=== PATIENT | male | born 1950 | race Caucasian/White ===

== ENCOUNTER 2021-04-20 09:05 | Inpatient (IN) ==
[2021-04-20] MEDS ORDERED: CeFAZolin Syr 2,000MG/20 ML 2,000 MG/20 ML SYRINGE IVPB ONE (09:23)
[2021-04-20] MEDS ORDERED: Ringers Solution, Lactated 1,000 ML IVC SCH (09:30)
[2021-04-20] MEDS ORDERED: *HR* FentaNYL (PF) 100 MCG/2 ML VIAL ONE ×2 (10:19→12:16)
[2021-04-20] MEDS ORDERED: *HR* Propofol 200 MG/20 ML VIAL IVP ONE (10:19)
[2021-04-20] MEDS ORDERED: *HR* Succinylcholine 200 MG/10 ML VIAL IVP ONE (10:19)
[2021-04-20] MEDS ORDERED: Heparin 1,000 UNITS/500 mL 0 ML ONE (10:25)
[2021-04-20] MEDS ORDERED: Protamine Sulfate 50 MG/5 ML VIAL IVP ONE (10:37)
[2021-04-20] MEDS ORDERED: Heparin 1,000 UNITS/500 mL 1,500 ML ONE (10:38)
[2021-04-20] MEDS ORDERED: *HR* Labetalol 20 MG/4 ML SYRINGE IVP PRN ×2 (11:00→19:43)
[2021-04-20] MEDS ORDERED: Famotidine 20 MG/2 ML VIAL IVP ONE (11:00)
[2021-04-20] MEDS ORDERED: *HR* OxyCODONE Immed Rel 5 MG TABLET PO PRN ×2 (11:00→19:43)
[2021-04-20] MEDS ORDERED: *HR* Promethazine 25 MG/ML VIAL IVPB PRN (11:00)
[2021-04-20] MEDS ORDERED: *HR* HYDROmorphone 2 MG TABLET PO PRN (11:00)
[2021-04-20] MEDS ORDERED: *HR* HYDROmorphone (PF) 1 MG/ML SYRINGE IVP PRN (11:00)
[2021-04-20] MEDS ORDERED: Acetaminophen IV 1,000 MG/100 ML BAG IVPB ONE ×2 (11:00→17:25)
[2021-04-20] MEDS ORDERED: Pregabalin 75 MG CAPSULE PO ONE (11:00)
[2021-04-20] MEDS ORDERED: Ipratropium/Albuterol Neb 3 ML IH ONE (11:17)
[2021-04-20] MEDS ORDERED: Lidocaine -MPF 2% 5 ML VIAL ONE (12:15)
[2021-04-20] MEDS ORDERED: *HR* Rocuronium Bromide 50 MG/5 ML VIAL ONE ×2 (12:15→13:32)
[2021-04-20] MEDS ORDERED: *HR* Labetalol 20 MG/4 ML SYRINGE IVP ONE (12:16)
[2021-04-20] MEDS ORDERED: EPHEDrine 50 MG/ML VIAL ONE (12:31)
[2021-04-20] MEDS ORDERED: Ondansetron 4 MG/2 ML VIAL ONE (13:32)
[2021-04-20] MEDS ORDERED: *HR* Heparin 5,000 UNIT/ML VIAL ONE (13:59)
[2021-04-20] MEDS ORDERED: Sugammadex Sodium 200 MG/2 ML VIAL IV ONE (14:15)
[2021-04-20] MEDS ORDERED: *HR* Phenylephrine 10 MG/ML VIAL ONE (14:35)
[2021-04-20] MEDS ORDERED: ceFAZolin 1,000 MG, Sodium Chloride IRRigation 1,000 ML IR ONE (15:00)
[2021-04-20] MEDS ORDERED: Naloxone 0.4 MG/ML INJ IVP PRN (19:43)
[2021-04-20] MEDS ORDERED: Ondansetron 4 MG/2 ML VIAL IVP PRN (19:43)
[2021-04-20] MEDS ORDERED: *HR* HYDROcodone/Acet 5/325 mg TABLET PO PRN (19:43)
[2021-04-20] MEDS ORDERED: *HR* OxyCODONE/APAP 5/325 TABLET PO PRN (19:43)
[2021-04-20] MEDS ORDERED: Acetaminophen 325 MG TABLET PO PRN (19:43)
[2021-04-20] MEDS ORDERED: 0.9 % Sodium Chloride 1,000 ML IVC SCH (19:43)
[2021-04-20] MEDS: CeFAZolin 2 GM/120 ML BAG IVPB SCH (21:32)
[2021-04-21 02:42] VITALS: TEMP 98.3
[2021-04-21] MEDS: CeFAZolin 2 GM/120 ML BAG IVPB SCH ×2 (05:01→11:47)
[2021-04-21 06:00] LABS: Basophils # 0.1 K/mcL (0.0-0.2); Basophils % 0.5 %; Hemoglobin 11.3 g/dL (12.9-16.9); Immature Granulocytes % 0.6 % (0-4); Lymphocytes # 2.1 K/mcL (0.6-4.6); Lymphocytes % 16.1 %; Mean Corpuscular HGB Conc 32.3 g/dL (31.6-35.5); Mean Corpuscular Hemoglobin 31.7 pg (28.0-33.3); Mean Corpuscular Volume 98.3 fL (83.0-100.0); Mean Platelet Volume 10.9 fL (9.4-12.4); Monocytes % 7.5 %; Neutrophils # 9.8 K/mcL (1.6-8.9); Platelet Count 225 K/mcL (140-400); Red Blood Count 3.56 M/mcL (4.19-5.50); Red Cell Distribution Width 12.7 % (11.5-14.5); Segmented Neutrophils % 75.3 %
[2021-04-21 06:10] LABS: BUN/Creatinine Ratio 22 (6-26); Blood Urea Nitrogen 14 mg/dL (8-23); Calcium 8.2 mg/dL (8.6-10.3); Carbon Dioxide 26 mEq/L (23-29); Chloride 107 mEq/L (98-107); Glucose 104 mg/dL (70-105); Osmolality,Calculated 287 (280-300); Potassium 4.1 mEq/L (3.5-5.1); Sodium 138 mEq/L (136-145); eGFR For African Americans > 60 (> 60); eGFR For Non-African Americans > 60 (> 60)
[2021-04-21 07:43] VITALS: BP 116/51
[2021-04-21] MEDS ORDERED: Aspirin Enteric Coated 81 MG Tablet PO SCH (09:00)
[2021-04-21 11:43] VITALS: O2SAT 92
[2021-04-21 13:09] VITALS: PULSE 81
== END 2021-04-21 14:22 | disposition home or self-care (01) | DRG 254 ==
LOC: SAMDAY 09:05 → 2NNU 19:07
PROVIDERS: ADMIT Surgery Vascular Surgery; ATTEND Surgery Vascular Surgery